=== PATIENT | female | born 1930 | race Caucasian/White ===

== ENCOUNTER 2017-08-07 10:22 | Outpatient (CLI) ==
[2013-03-01 09:08] VITALS: TEMP 97.4; BMI 30.9
--- NOTE | 2017-08-07 11:09 | US ---
Exam: Transabdominal ultrasonographic evaluation of the pelvis. Comparison: None available. Reason for exam: Pelvic pain. FINDINGS: The uterus measures approximately 7.65 x 2.91 x 3.90 cm. There is a mixed hyperechoic / i soechoic structure in the uterine myometrium measuring approximately 1.99 x 1.81 x 3.12 cm that likel y represents a fibroid. The endometrium measures 0.61 cm. The right ovary measures 2.19 x 9.3 x 1.15 cm and is poorly visualized secondary to the position of t he ovary and body habitus with normal appearing vascularity. The left ovary measures approximately 1.47 x 1.36 x 1.05 cm and is poorly visualized secondary to pos itioning of the ovary and body habitus with normal appearing vascularity. Impression: 1. The ovaries are poorly imaged secondary to body habitus and position of the ovaries within the pel vis. 2. Mixed hyperechoic/isoechoic structure in the uterine myometrium likely represents a partially juan c cified fibroid.
== END 2017-08-07 10:23 | disposition home or self-care (01) ==
LOC: RAD 10:22
PROVIDERS: ATTEND Family Medicine
DX: N95.2 Postmenopausal atrophic vaginitis (principal); R10.2 Pelvic and perineal pain; L98.9 Disorder of the skin and subcutaneous tissue, unspecified